=== PATIENT | female | born 1995 | race Caucasian/White ===

== ENCOUNTER 2017-08-31 20:52 | Inpatient (IN) | payer MEDICAID ==
[~2017-08-31] VITALS: Ht 152.4 cm; Wt 52.9 kg
[~2017-08-31 20:52] MED LIST: PANT40TA5 PO; PHEN30CA PO; SUCR1ORA5 PO
[2017-08-31] MEDS ORDERED: NALOXONE 0.4 MG/ML, 1ML ONE (21:00)
[2017-08-31] MEDS ORDERED: ZIPRASIDONE 20 MG INJ IM ONE ×2 (21:16→21:30)
[2017-08-31] MEDS ORDERED: NALOXONE 0.4 MG/ML, 1ML IVPush ONE (21:30)
[2017-08-31] MEDS ORDERED: SODIUM CHLORIDE 0.9% 1,000ML IVBOLUS ONE (21:30)
[2017-08-31 21:40] LABS: BASOPHILS # (AUTO) 0.04 x10^3/uL (0-0.1); BASOPHILS % (AUTO) 1 % (0-1); EOSINOPHILS # (AUTO) 0.03 x10^3/uL (0-0.4); EOSINOPHILS % (AUTO) 1 % (1-7); LYMPHOCYTES # (AUTO) 2.47 x10^3/uL (1-3.4); LYMPHOCYTES % (AUTO) 40 % (22-44); MD NO; MEAN CORPUSCULAR HEMOGLOBIN 32.8 pg (27.0-34.8); MEAN CORPUSCULAR HGB CONC 33.8 g/dL (32.4-35.8); MEAN CORPUSCULAR VOLUME 97.1 fL (80-100); MEAN PLATELET VOLUME 7.4 fL (7.4-10.4); MONOCYTES # (AUTO) 0.41 x10^3/uL (0.2-0.8); MONOCYTES % (AUTO) 7 % (2-9); NEUTROPHILS # (AUTO) 3.16 x10^3/uL (1.8-6.8); NEUTROPHILS % (AUTO) 52 % (42-75); PLATELET COUNT 391 x10^3/uL (130-400); RED BLOOD COUNT 3.99 x10^6/uL (3.82-5.3); RED CELL DISTRIBUTION WIDTH 13.4 % (9.6-15.2)
[2017-08-31] MEDS: PLEASE ENTER HEIGHT AND WEIGHT MC SCH (21:40)
[2017-08-31 21:52] LABS: ALANINE AMINOTRANSFERASE 95 U/L (12-78); ALBUMIN 3.9 g/dL (3.4-5.0); ANION GAP 10 mmol/L (5-15); CALCIUM 8.5 mg/dL (8.5-10.1); CHLORIDE 113 mmol/L (98-107); CREATININE 0.75 mg/dL (0.55-1.02)
[2017-08-31 21:54] LABS: ACETAMINOPHEN < 2 mcg/mL (10-30); SALICYLATE LEVEL < 1.7 mg/dL (2.8-20.0)
[2017-08-31 21:56] LABS: ALKALINE PHOSPHATASE 76 U/L (45-117); BILIRUBIN,TOTAL 0.2 mg/dL (0.2-1.0); TOTAL PROTEIN 8.1 g/dL (6.4-8.2)
[2017-08-31 22:02] LABS: THYROID STIMULATING HORMONE 0.679 mIU/L (0.358-3.740)
[2017-09-01] MEDS: PLEASE ENTER HEIGHT AND WEIGHT MC SCH (06:54)
[2017-09-01] MEDS ORDERED: SODIUM CHLORIDE 0.9% 1,000ML IVBOLUS ONE (09:30)
[2017-09-01] MEDS ORDERED: LORazepam 2 MG/ML, 1ML IVPush PRN (09:30)
[2017-09-01] MEDS ORDERED: SODIUM CHLORIDE FLUSH 10ML SYR IVF ONE (09:30)
[2017-09-01] MEDS ORDERED: hydrALAzine 20 MG/ML, 1ML IVPush PRN (11:30)
[2017-09-01] MEDS: DEXTROSE 5% 1,000 ML IV SCH ×2 (12:13→19:40)
[2017-09-01] MEDS: PANTOPROZOLE 40MG TABLET PO SCH ×2 (12:15→22:22)
[2017-09-01 12:26] VITALS: BP 123/83
[2017-09-01 12:43] LABS: FREE T4 (FREE THYROXINE) 0.86 ng/dL (0.76-1.46); THYROID STIMULATING HORMONE 0.859 mIU/L (0.358-3.740)
[2017-09-01 12:57] LABS: AMPHETAMINE SCREEN, URINE Negative (Negative); BARBITURATE SCREEN, URINE Negative (Negative); BENZODIAZEPINE SCREEN, URINE Negative (Negative); CANNABINOID SCREEN, URINE Negative (Negative); COCAINE SCREEN, URINE Negative (Negative); METHADONE SCREEN, URINE Negative (Negative); OPIATE SCREEN, URINE Negative (Negative)
[2017-09-01 14:46] VITALS: BP 130/88
[2017-09-01] MEDS: MAALOX/HYOSCYAMINE/LIDOCAINE 45 ML BTL PO PRN (16:06)
[2017-09-01] MEDS ORDERED: MORPHINE SULFATE 4 MG/ML, 1ML ONE (16:37)
[2017-09-01] MEDS: morphine SULFATE 10 MG/ML, 1ML IVPush PRN ×2 (16:42→22:22)
[2017-09-01] MEDS: LORazepam 2 MG/ML, 1ML IVPush PRN ×3 (17:10→23:24)
[2017-09-01 19:27] VITALS: BP 142/94
[2017-09-01] MEDS ORDERED: ONDANSETRON ODT 4 MG ONE (19:35)
[2017-09-01] MEDS: ONDANSETRON 2MG/ML, 2ML IVPush PRN (19:41)
[2017-09-01] MEDS: MAGNESIUM OXIDE 400 MG TABLET PO SCH (22:22)
[2017-09-02 00:29] VITALS: BP 139/91
[2017-09-02] MEDS ORDERED: ONDANSETRON ODT 4 MG ONE (01:09)
[2017-09-02] MEDS: ONDANSETRON 2MG/ML, 2ML IVPush PRN (01:11)
[2017-09-02] MEDS: LORazepam 2 MG/ML, 1ML IVPush PRN ×4 (01:36→20:01)
[2017-09-02] MEDS ORDERED: MORPHINE SULFATE 4 MG/ML, 1ML ONE (02:15)
[2017-09-02] MEDS: DEXTROSE 5% 1,000 ML IV SCH (02:19)
[2017-09-02] MEDS: morphine SULFATE 10 MG/ML, 1ML IVPush PRN ×5 (02:24→22:11)
[2017-09-02] MEDS: MAALOX/HYOSCYAMINE/LIDOCAINE 45 ML BTL PO PRN (05:12)
[2017-09-02 05:57] LABS: ALBUMIN 3.2 g/dL (3.4-5.0); ANION GAP 10 mmol/L (5-15); CALCIUM 8.5 mg/dL (8.5-10.1); CHLORIDE 103 mmol/L (98-107)
[2017-09-02 06:02] LABS: ALANINE AMINOTRANSFERASE 67 U/L (12-78); ALKALINE PHOSPHATASE 70 U/L (45-117); BILIRUBIN,TOTAL 0.6 mg/dL (0.2-1.0); CREATININE 0.67 mg/dL (0.55-1.02); TOTAL PROTEIN 6.7 g/dL (6.4-8.2)
[2017-09-02 06:03] LABS: BASOPHILS # (AUTO) 0.02 x10^3/uL (0-0.1); BASOPHILS % (AUTO) 0 % (0-1); EOSINOPHILS # (AUTO) 0.09 x10^3/uL (0-0.4); EOSINOPHILS % (AUTO) 2 % (1-7); LYMPHOCYTES # (AUTO) 1.87 x10^3/uL (1-3.4); LYMPHOCYTES % (AUTO) 39 % (22-44); MD NO; MEAN CORPUSCULAR HEMOGLOBIN 32.7 pg (27.0-34.8); MEAN CORPUSCULAR VOLUME 96.1 fL (80-100); MEAN PLATELET VOLUME 7.2 fL (7.4-10.4); MONOCYTES # (AUTO) 0.59 x10^3/uL (0.2-0.8); MONOCYTES % (AUTO) 12 % (2-9); NEUTROPHILS # (AUTO) 2.28 x10^3/uL (1.8-6.8); NEUTROPHILS % (AUTO) 47 % (42-75); PLATELET COUNT 285 x10^3/uL (130-400); RED BLOOD COUNT 3.39 x10^6/uL (3.82-5.3); RED CELL DISTRIBUTION WIDTH 13.2 % (9.6-15.2)
[2017-09-02 08:18] VITALS: BP 119/84
[2017-09-02] MEDS: D5%-0.45% NACL 1,000 ML IV SCH ×3 (08:30→21:25)
[2017-09-02] MEDS ORDERED: MAGNESIUM SULFATE PMX 2GM/50ML 50 ML IV ONE (08:30)
[2017-09-02] MEDS ORDERED: POTASSIUM PHOSPHATE 22 MEQ in SODIUM CHLORIDE 0.9% 500 ML IV ONE (08:30)
[2017-09-02] MEDS: POTASSIUM CHLORIDE 20 MEQ TAB.ER.PRT PO SCH ×2 (09:47→10:56)
[2017-09-02] MEDS: MAGNESIUM OXIDE 400 MG TABLET PO SCH ×2 (09:48→21:23)
[2017-09-02] MEDS: PANTOPROZOLE 40MG TABLET PO SCH ×2 (09:52→21:23)
[2017-09-02] MEDS: CHLORDIAZEPOXIDE 25 MG CAPSULE PO SCH ×3 (10:56→21:23)
[2017-09-02 15:56] VITALS: BP 137/96
[2017-09-02 19:12] VITALS: BP_SYST 150; BP_SYST 155; BP_DIAS 117; BP_DIAS 120
[2017-09-02 19:59] VITALS: BP 113/72
[2017-09-02 20:03] VITALS: BP 162/122
[2017-09-02] MEDS ORDERED: METOPROLOL 1 MG/ML, 5ML ONE (20:17)
[2017-09-02] MEDS ORDERED: METOPROLOL 1 MG/ML, 5ML IVPush ONE (20:30)
[2017-09-02] MEDS ORDERED: LORazepam 2 MG/ML, 1ML IVPush ONE (20:30)
[2017-09-02] MEDS ORDERED: LORazepam 2 MG/ML, 1ML IV PRN ×3 (21:00)
[2017-09-02] MEDS ORDERED: LORazepam 0.5MG TABLET PO PRN (21:00)
[2017-09-02] MEDS ORDERED: LORazepam 1MG TABLET PO PRN ×3 (21:00)
[2017-09-02 21:01] LABS: ANION GAP 8 mmol/L (5-15); CALCIUM 9.2 mg/dL (8.5-10.1); CHLORIDE 106 mmol/L (98-107); CREATININE 0.67 mg/dL (0.55-1.02)
[2017-09-02] MEDS: LORazepam 2 MG/ML, 1ML IV PRN (23:15)
[2017-09-03] MEDS: LORazepam 2 MG/ML, 1ML IV PRN ×3 (00:45→06:42)
[2017-09-03] MEDS: morphine SULFATE 10 MG/ML, 1ML IVPush PRN ×4 (04:26→21:08)
[2017-09-03] MEDS: D5%-0.45% NACL 1,000 ML IV SCH (04:30)
[2017-09-03 04:55] LABS: BASOPHILS # (AUTO) 0.02 x10^3/uL (0-0.1); BASOPHILS % (AUTO) 0 % (0-1); EOSINOPHILS # (AUTO) 0.29 x10^3/uL (0-0.4); EOSINOPHILS % (AUTO) 4 % (1-7); LYMPHOCYTES # (AUTO) 2.44 x10^3/uL (1-3.4); LYMPHOCYTES % (AUTO) 36 % (22-44); MD NO; MEAN CORPUSCULAR HEMOGLOBIN 32.8 pg (27.0-34.8); MEAN CORPUSCULAR HGB CONC 33.8 g/dL (32.4-35.8); MEAN CORPUSCULAR VOLUME 96.9 fL (80-100); MEAN PLATELET VOLUME 7.4 fL (7.4-10.4); MONOCYTES # (AUTO) 0.44 x10^3/uL (0.2-0.8); MONOCYTES % (AUTO) 7 % (2-9); NEUTROPHILS % (AUTO) 53 % (42-75); PLATELET COUNT 304 x10^3/uL (130-400); RED BLOOD COUNT 3.67 x10^6/uL (3.82-5.3)
[2017-09-03 05:06] LABS: ALBUMIN 3.3 g/dL (3.4-5.0); CHLORIDE 107 mmol/L (98-107)
[2017-09-03 05:14] LABS: ALANINE AMINOTRANSFERASE 101 U/L (12-78); ALKALINE PHOSPHATASE 76 U/L (45-117); ANION GAP 7 mmol/L (5-15); BILIRUBIN,TOTAL 0.3 mg/dL (0.2-1.0); CALCIUM 8.2 mg/dL (8.5-10.1); CREATININE 0.64 mg/dL (0.55-1.02); TOTAL PROTEIN 7.2 g/dL (6.4-8.2)
[2017-09-03] MEDS: CHLORDIAZEPOXIDE 25 MG CAPSULE PO SCH (06:06)
[2017-09-03] MEDS: LORazepam 1MG TABLET PO PRN ×2 (08:18→09:24)
[2017-09-03] MEDS: PANTOPROZOLE 40MG TABLET PO SCH ×2 (09:24→19:47)
[2017-09-03] MEDS: MAGNESIUM OXIDE 400 MG TABLET PO SCH ×2 (09:24→19:47)
[2017-09-03] MEDS ORDERED: LORazepam 1MG TABLET PO PRN ×2 (11:30)
[2017-09-03] MEDS: ENOXAPARIN 40 MG/0.4 ML SQ SCH (12:28)
[2017-09-03] MEDS: GABAPENTIN 300 MG CAPSULE PO SCH (12:28)
[2017-09-03] MEDS: THIAMINE 100MG TABLET PO SCH (12:28)
[2017-09-03] MEDS: FOLIC ACID 1 MG TABLET PO SCH (12:28)
[2017-09-03] MEDS: MULTIVITAMINS/MINERALS TABLET PO SCH (12:28)
[2017-09-03] MEDS ORDERED: PHENOBARBITAL SODIUM 500 MG in SODIUM CHLORIDE 0.9% 50 ML IV ONE (12:30)
[2017-09-03] MEDS: NICOTINE 14MG/24 HR PATCH.TD24 TD SCH (16:25)
[2017-09-03] MEDS ORDERED: PHENOBARBITAL SODIUM 130 MG/ML, 1ML IM SCH ×3 (19:00→20:00)
[2017-09-03] MEDS ORDERED: DEXMEDETOMIDINE 200 MCG in SODIUM CHLORIDE 0.9% 48 ML IV PRN (19:00)
[2017-09-03] MEDS ORDERED: PHENOBARBITAL SODIUM 65 MG/ML, 1ML ONE (19:43)
[2017-09-03] MEDS: PHENOBARBITAL SODIUM 65 MG/ML, 1ML IM SCH (19:57)
[2017-09-04] MEDS: morphine SULFATE 10 MG/ML, 1ML IVPush PRN ×5 (03:33→20:22)
[2017-09-04 04:14] VITALS: BP 145/110
[2017-09-04 04:42] LABS: BASOPHILS # (AUTO) 0.03 x10^3/uL (0-0.1); BASOPHILS % (AUTO) 1 % (0-1); EOSINOPHILS # (AUTO) 0.33 x10^3/uL (0-0.4); EOSINOPHILS % (AUTO) 6 % (1-7); LYMPHOCYTES # (AUTO) 2.43 x10^3/uL (1-3.4); LYMPHOCYTES % (AUTO) 43 % (22-44); MD NO; MEAN CORPUSCULAR HEMOGLOBIN 32.6 pg (27.0-34.8); MEAN CORPUSCULAR HGB CONC 33.6 g/dL (32.4-35.8); MEAN CORPUSCULAR VOLUME 97.1 fL (80-100); MEAN PLATELET VOLUME 7.4 fL (7.4-10.4); MONOCYTES # (AUTO) 0.41 x10^3/uL (0.2-0.8); MONOCYTES % (AUTO) 7 % (2-9); NEUTROPHILS # (AUTO) 2.43 x10^3/uL (1.8-6.8); NEUTROPHILS % (AUTO) 43 % (42-75); PLATELET COUNT 333 x10^3/uL (130-400); RED BLOOD COUNT 3.75 x10^6/uL (3.82-5.3); RED CELL DISTRIBUTION WIDTH 13.1 % (9.6-15.2)
[2017-09-04 04:44] LABS: INTERNATIONAL NORMALIZED RATIO 0.95 (0.93-1.1); PROTHROMBIN TIME 9.9 Seconds (9.6-11.5)
[2017-09-04 04:50] LABS: ALANINE AMINOTRANSFERASE 123 U/L (12-78); ALBUMIN 3.4 g/dL (3.4-5.0); ANION GAP 6 mmol/L (5-15); CALCIUM 8.9 mg/dL (8.5-10.1); CHLORIDE 101 mmol/L (98-107); CREATININE 0.74 mg/dL (0.55-1.02)
[2017-09-04 04:52] LABS: ALKALINE PHOSPHATASE 72 U/L (45-117); BILIRUBIN,TOTAL 0.5 mg/dL (0.2-1.0); TOTAL PROTEIN 7.3 g/dL (6.4-8.2)
[2017-09-04] MEDS: PANTOPROZOLE 40MG TABLET PO SCH ×2 (07:28→20:22)
[2017-09-04] MEDS: THIAMINE 100MG TABLET PO SCH (07:28)
[2017-09-04] MEDS: FOLIC ACID 1 MG TABLET PO SCH (07:28)
[2017-09-04] MEDS: MAGNESIUM OXIDE 400 MG TABLET PO SCH ×2 (07:28→20:22)
[2017-09-04] MEDS: MULTIVITAMINS/MINERALS TABLET PO SCH (07:28)
[2017-09-04] MEDS: GABAPENTIN 300 MG CAPSULE PO SCH (07:28)
[2017-09-04] MEDS: PHENOBARBITAL SODIUM 65 MG/ML, 1ML IM SCH ×2 (07:29→22:15)
[2017-09-04] MEDS ORDERED: MAGNESIUM SULFATE PMX 2GM/50ML 50 ML IV ONE (08:00)
[2017-09-04] MEDS ORDERED: D5%-0.45% NACL 1,000 ML IV SCH (08:30)
[2017-09-04] MEDS: KETOROLAC 30 MG/1 ML IVPush PRN ×2 (09:31→16:21)
[2017-09-04] MEDS: ENOXAPARIN 40 MG/0.4 ML SQ SCH (12:22)
[2017-09-04] MEDS: NICOTINE 14MG/24 HR PATCH.TD24 TD SCH (16:21)
[2017-09-04 18:38] VITALS: BP 140/85
[2017-09-04 19:46] VITALS: BP 119/83
[2017-09-04] MEDS: MAALOX/HYOSCYAMINE/LIDOCAINE 45 ML BTL PO PRN (20:23)
[2017-09-04] MEDS ORDERED: ONDANSETRON ODT 4 MG PO PRN (23:30)
[2017-09-05 00:37] VITALS: BP 123/87
[2017-09-05] MEDS: morphine SULFATE 10 MG/ML, 1ML IVPush PRN ×2 (01:13→05:49)
[2017-09-05 05:26] LABS: BASOPHILS # (AUTO) 0.02 x10^3/uL (0-0.1); BASOPHILS % (AUTO) 0 % (0-1); EOSINOPHILS # (AUTO) 0.21 x10^3/uL (0-0.4); EOSINOPHILS % (AUTO) 4 % (1-7); LYMPHOCYTES % (AUTO) 27 % (22-44); MD NO; MEAN CORPUSCULAR HEMOGLOBIN 33.3 pg (27.0-34.8); MEAN CORPUSCULAR HGB CONC 34.5 g/dL (32.4-35.8); MEAN CORPUSCULAR VOLUME 96.5 fL (80-100); MEAN PLATELET VOLUME 7.6 fL (7.4-10.4); MONOCYTES # (AUTO) 0.29 x10^3/uL (0.2-0.8); MONOCYTES % (AUTO) 6 % (2-9); NEUTROPHILS % (AUTO) 63 % (42-75); PLATELET COUNT 276 x10^3/uL (130-400); RED BLOOD COUNT 3.42 x10^6/uL (3.82-5.3); RED CELL DISTRIBUTION WIDTH 12.9 % (9.6-15.2)
[2017-09-05 05:38] LABS: CHLORIDE 102 mmol/L (98-107)
[2017-09-05 05:45] LABS: ALANINE AMINOTRANSFERASE 92 U/L (12-78); ALBUMIN 2.9 g/dL (3.4-5.0); ALKALINE PHOSPHATASE 80 U/L (45-117); ANION GAP 5 mmol/L (5-15); BILIRUBIN,TOTAL 0.3 mg/dL (0.2-1.0); CALCIUM 8.4 mg/dL (8.5-10.1); CREATININE 0.69 mg/dL (0.55-1.02); TOTAL PROTEIN 6.2 g/dL (6.4-8.2)
[2017-09-05 08:57] VITALS: BP 108/73
[2017-09-05] MEDS: MULTIVITAMINS/MINERALS TABLET PO SCH (11:09)
[2017-09-05] MEDS: KETOROLAC 30 MG/1 ML IVPush PRN ×2 (11:09→18:16)
[2017-09-05] MEDS: THIAMINE 100MG TABLET PO SCH (11:13)
[2017-09-05] MEDS: GABAPENTIN 300 MG CAPSULE PO SCH (11:14)
[2017-09-05] MEDS: MAGNESIUM OXIDE 400 MG TABLET PO SCH ×2 (11:14→20:34)
[2017-09-05] MEDS: FOLIC ACID 1 MG TABLET PO SCH (11:14)
[2017-09-05] MEDS: PHENOBARBITAL SODIUM 65 MG/ML, 1ML IM SCH (12:32)
[2017-09-05] MEDS: ENOXAPARIN 40 MG/0.4 ML SQ SCH (12:36)
[2017-09-05 13:04] VITALS: BP 119/81
[2017-09-05] MEDS: NICOTINE 14MG/24 HR PATCH.TD24 TD SCH (16:24)
[2017-09-05 19:41] VITALS: BP 123/87
[2017-09-05] MEDS ORDERED: PHENOBARBITAL 30 MG TABLET ONE (20:32)
[2017-09-05] MEDS: PHENOBARBITAL 20 MG/5 ML ORAL SOL PO SCH (20:35)
[2017-09-06] MEDS: KETOROLAC 30 MG/1 ML IVPush PRN ×4 (00:30→18:28)
[2017-09-06 02:31] VITALS: BP 125/85
[2017-09-06 07:37] VITALS: BP 102/57
[2017-09-06] MEDS: MULTIVITAMINS/MINERALS TABLET PO SCH (09:23)
[2017-09-06] MEDS: PHENOBARBITAL 20 MG/5 ML ORAL SOL PO SCH ×2 (09:23→20:00)
[2017-09-06] MEDS: GABAPENTIN 300 MG CAPSULE PO SCH (09:23)
[2017-09-06] MEDS: MAGNESIUM OXIDE 400 MG TABLET PO SCH ×2 (09:24→20:00)
[2017-09-06] MEDS: FOLIC ACID 1 MG TABLET PO SCH (09:24)
[2017-09-06] MEDS: THIAMINE 100MG TABLET PO SCH (09:24)
[2017-09-06] MEDS: ENOXAPARIN 40 MG/0.4 ML SQ SCH (12:21)
[2017-09-06 12:24] VITALS: BP 127/93
[2017-09-06] MEDS: NICOTINE 14MG/24 HR PATCH.TD24 TD SCH (16:00)
[2017-09-06 20:00] VITALS: BP 115/78
[2017-09-07 02:00] VITALS: BP 137/95
[2017-09-07 07:29] VITALS: BP 133/88
[2017-09-07] MEDS: THIAMINE 100MG TABLET PO SCH (09:23)
[2017-09-07] MEDS: GABAPENTIN 300 MG CAPSULE PO SCH (09:23)
[2017-09-07] MEDS: FOLIC ACID 1 MG TABLET PO SCH (09:23)
[2017-09-07] MEDS: PHENOBARBITAL 20 MG/5 ML ORAL SOL PO SCH (09:23)
[2017-09-07] MEDS: MULTIVITAMINS/MINERALS TABLET PO SCH (09:23)
[2017-09-07] MEDS: MAGNESIUM OXIDE 400 MG TABLET PO SCH (09:23)
[2017-09-07] MEDS: ENOXAPARIN 40 MG/0.4 ML SQ SCH (13:06)
[2017-09-07] MEDS ORDERED: THIA100T6 PO (13:12)
[2017-09-07 13:16] VITALS: BP 115/80
[2017-09-07] MEDS: NICOTINE 14MG/24 HR PATCH.TD24 TD SCH (16:00)
[2017-09-07] MEDS ORDERED: PHENOBARBITAL 20 MG/5 ML ORAL SOL PO SCH (20:00)
[2017-09-08] MEDS ORDERED: PHENOBARBITAL 20 MG/5 ML ORAL SOL PO SCH (20:00)
== END 2017-09-07 16:56 | disposition home or self-care (01) | DRG 56 ==
LOC: ED 21:52 → EDIP 09-01 10:53 → 4EST 09-01 11:47 → CCU 09-02 20:26 → 4WST 09-04 16:22 → DCLOUNGE 09-07 16:50
PROVIDERS: ADMIT Internal Medicine; ATTEND Internal Medicine
DX: G31.2 Degeneration of nervous system due to alcohol (principal); G92 Toxic encephalopathy; F10.221 Alcohol dependence with intoxication delirium; F10.231 Alcohol dependence with withdrawal delirium; E87.0 Hyperosmolality and hypernatremia; E87.1 Hypo-osmolality and hyponatremia; F17.203 Nicotine dependence unspecified, with withdrawal; F19.20 Other psychoactive substance dependence, uncomplicated; E83.39 Other disorders of phosphorus metabolism; E86.0 Dehydration; E83.42 Hypomagnesemia; E87.6 Hypokalemia; K70.10 Alcoholic hepatitis without ascites; T50.905A Adverse effect of unspecified drugs, medicaments and biological substances, initial encounter; Z88.5 Allergy status to narcotic agent; Z88.8 Allergy status to other drugs, medicaments and biological substances
CPT/HCPCS: 36415; 80048; 80053; 80307; 80329; 82962; 83735; 84100; 84439; 84443; 84703; 85025; 85610; 86704; 86706; 86708; 86803; 87081; 87340; 93005; 96361; 96372; 96374; 96375; J1650; J1885; J2310; J2405; J2560; J3486; J7070; Q0162; G0480; J2060; J2270; J3475; J7030; J7040

== ENCOUNTER 2017-11-16 03:51 | Inpatient (IN) | payer OTHER, MEDICAID ==
[~2017-11-16] VITALS: Ht 152.4 cm; Wt 64.0 kg
[~2017-11-16 03:51] MED LIST changes: +THIA100T67 PO
[2017-11-16] MEDS ORDERED: SODIUM CHLORIDE FLUSH 10ML SYR IVF ONE (04:00)
[2017-11-16] MEDS ORDERED: SODIUM CHLORIDE 0.9% 1,000ML IVBOLUS ONE ×2 (04:00→06:30)
[2017-11-16] MEDS ORDERED: ONDANSETRON 2MG/ML, 2ML IVPush ONE (04:00)
[2017-11-16] MEDS ORDERED: LORazepam 2 MG/ML, 1ML ONE ×2 (04:24→06:11)
[2017-11-16] MEDS ORDERED: LORazepam 2 MG/ML, 1ML IVPush ONE ×2 (04:30→06:30)
[2017-11-16] MEDS ORDERED: ONDANSETRON 2MG/ML, 2ML ONE (05:07)
[2017-11-16 05:14] LABS: BASOPHILS # (AUTO) 0.03 x10^3/uL (0-0.1); BASOPHILS % (AUTO) 1 % (0-1); EOSINOPHILS # (AUTO) 0.07 x10^3/uL (0-0.4); EOSINOPHILS % (AUTO) 1 % (1-7); LYMPHOCYTES # (AUTO) 2.57 x10^3/uL (1-3.4); LYMPHOCYTES % (AUTO) 42 % (22-44); MD NO; MEAN CORPUSCULAR HEMOGLOBIN 32.7 pg (27.0-34.8); MEAN CORPUSCULAR HGB CONC 34.4 g/dL (32.4-35.8); MEAN CORPUSCULAR VOLUME 95.1 fL (80-100); MEAN PLATELET VOLUME 7.6 fL (7.4-10.4); MONOCYTES # (AUTO) 0.43 x10^3/uL (0.2-0.8); MONOCYTES % (AUTO) 7 % (2-9); NEUTROPHILS # (AUTO) 3.07 x10^3/uL (1.8-6.8); NEUTROPHILS % (AUTO) 50 % (42-75); PLATELET COUNT 249 x10^3/uL (130-400); RED CELL DISTRIBUTION WIDTH 15.5 % (9.6-15.2)
[2017-11-16 05:23] LABS: ALBUMIN 4.2 g/dL (3.4-5.0); ANION GAP 13 mmol/L (5-15); CHLORIDE 105 mmol/L (98-107)
[2017-11-16 05:30] LABS: ALANINE AMINOTRANSFERASE 145 U/L (12-78); ALKALINE PHOSPHATASE 118 U/L (45-117); BILIRUBIN,TOTAL 0.3 mg/dL (0.2-1.0); CALCIUM 8.8 mg/dL (8.5-10.1); CREATININE 0.84 mg/dL (0.55-1.02); TOTAL PROTEIN 8.8 g/dL (6.4-8.2)
[2017-11-16 05:40] LABS: AMPHETAMINE SCREEN, URINE Negative (Negative); BARBITURATE SCREEN, URINE Negative (Negative); BENZODIAZEPINE SCREEN, URINE Negative (Negative); CANNABINOID SCREEN, URINE Positive (Negative); COCAINE SCREEN, URINE Negative (Negative); METHADONE SCREEN, URINE Negative (Negative); OPIATE SCREEN, URINE Negative (Negative)
[2017-11-16] MEDS ORDERED: SODIUM CHLORIDE 0.9% 1,000 ML IV ONE (06:28)
[2017-11-16] MEDS ORDERED: ONDANSETRON 2MG/ML, 2ML IVPush PRN ×2 (06:30→09:00)
[2017-11-16 07:30] VITALS: BP 105/62
[2017-11-16] MEDS ORDERED: LORazepam 1MG TABLET PO PRN (09:00)
[2017-11-16] MEDS ORDERED: LORazepam 2 MG/ML, 1ML IV PRN ×4 (09:00)
[2017-11-16] MEDS ORDERED: morphine SULFATE 10 MG/ML, 1ML IVPush PRN (09:00)
[2017-11-16] MEDS: SODIUM CHLORIDE 0.9% 1,000 ML IV SCH ×2 (09:00→17:34)
[2017-11-16 09:45] LABS: BASOPHILS # (AUTO) 0.03 x10^3/uL (0-0.1); BASOPHILS % (AUTO) 1 % (0-1); EOSINOPHILS # (AUTO) 0.13 x10^3/uL (0-0.4); EOSINOPHILS % (AUTO) 2 % (1-7); LYMPHOCYTES # (AUTO) 2.29 x10^3/uL (1-3.4); LYMPHOCYTES % (AUTO) 40 % (22-44); MD NO; MEAN CORPUSCULAR HEMOGLOBIN 32.3 pg (27.0-34.8); MEAN CORPUSCULAR HGB CONC 33.7 g/dL (32.4-35.8); MEAN CORPUSCULAR VOLUME 95.9 fL (80-100); MEAN PLATELET VOLUME 7.7 fL (7.4-10.4); MONOCYTES # (AUTO) 0.46 x10^3/uL (0.2-0.8); MONOCYTES % (AUTO) 8 % (2-9); NEUTROPHILS # (AUTO) 2.76 x10^3/uL (1.8-6.8); NEUTROPHILS % (AUTO) 49 % (42-75); PLATELET COUNT 189 x10^3/uL (130-400); RED BLOOD COUNT 3.56 x10^6/uL (3.82-5.3); RED CELL DISTRIBUTION WIDTH 15.4 % (9.6-15.2)
[2017-11-16 09:56] LABS: ALANINE AMINOTRANSFERASE 113 U/L (12-78); ALBUMIN 3.2 g/dL (3.4-5.0); ANION GAP 9 mmol/L (5-15); CALCIUM 7.5 mg/dL (8.5-10.1); CHLORIDE 112 mmol/L (98-107); CREATININE 0.62 mg/dL (0.55-1.02)
[2017-11-16 09:58] LABS: ALKALINE PHOSPHATASE 98 U/L (45-117); BILIRUBIN,TOTAL 0.2 mg/dL (0.2-1.0); TOTAL PROTEIN 6.8 g/dL (6.4-8.2)
[2017-11-16] MEDS: MORPHINE SULFATE 4 MG/ML, 1ML IVPush PRN ×4 (10:20→20:48)
[2017-11-16] MEDS: FAMOTIDINE 20 MG TABLET PO SCH ×2 (10:20→20:47)
[2017-11-16] MEDS: POTASSIUM CHLORIDE 20 MEQ, MAGNESIUM SULFATE 1 GM, FOLIC ACID 1 MG, THIAMINE 200 MG, MV... IV SCH (10:20)
[2017-11-16] MEDS: CHLORDIAZEPOXIDE 10 MG CAPSULE PO SCH ×3 (10:26→20:47)
[2017-11-16 10:43] VITALS: BP 105/62
[2017-11-16] MEDS ORDERED: SODIUM CHLORIDE 0.9%, 500ML IVBOLUS ONE (11:30)
[2017-11-16 12:37] VITALS: BP 118/83
[2017-11-16 18:43] VITALS: BP 140/93
[2017-11-16] MEDS ORDERED: MAGNESIUM SULFATE 4 GM in SODIUM CHLORIDE 0.9% 100 ML IV ONE (22:00)
[2017-11-17 00:28] VITALS: BP 137/104
[2017-11-17] MEDS: MORPHINE SULFATE 4 MG/ML, 1ML IVPush PRN ×2 (00:30→08:05)
[2017-11-17 02:51] VITALS: BP 117/83
[2017-11-17] MEDS: CHLORDIAZEPOXIDE 10 MG CAPSULE PO SCH (05:04)
[2017-11-17] MEDS: SODIUM CHLORIDE 0.9% 1,000 ML IV SCH (05:05)
[2017-11-17 06:03] LABS: BASOPHILS # (AUTO) 0.03 x10^3/uL (0-0.1); BASOPHILS % (AUTO) 1 % (0-1); EOSINOPHILS # (AUTO) 0.24 x10^3/uL (0-0.4); EOSINOPHILS % (AUTO) 4 % (1-7); LYMPHOCYTES % (AUTO) 45 % (22-44); MD NO; MEAN CORPUSCULAR HEMOGLOBIN 32.5 pg (27.0-34.8); MEAN CORPUSCULAR HGB CONC 33.7 g/dL (32.4-35.8); MEAN CORPUSCULAR VOLUME 96.4 fL (80-100); MEAN PLATELET VOLUME 7.8 fL (7.4-10.4); MONOCYTES # (AUTO) 0.42 x10^3/uL (0.2-0.8); MONOCYTES % (AUTO) 8 % (2-9); NEUTROPHILS # (AUTO) 2.38 x10^3/uL (1.8-6.8); NEUTROPHILS % (AUTO) 43 % (42-75); PLATELET COUNT 168 x10^3/uL (130-400); RED BLOOD COUNT 3.67 x10^6/uL (3.82-5.3); RED CELL DISTRIBUTION WIDTH 15.6 % (9.6-15.2)
[2017-11-17 06:16] LABS: CHLORIDE 110 mmol/L (98-107)
[2017-11-17 06:23] LABS: ALANINE AMINOTRANSFERASE 90 U/L (12-78); ALKALINE PHOSPHATASE 92 U/L (45-117); ANION GAP 8 mmol/L (5-15); BILIRUBIN,TOTAL 0.6 mg/dL (0.2-1.0); CREATININE 0.53 mg/dL (0.55-1.02); TOTAL PROTEIN 6.1 g/dL (6.4-8.2)
[2017-11-17 06:56] VITALS: BP 116/81
[2017-11-17] MEDS: FAMOTIDINE 20 MG TABLET PO SCH ×2 (08:05→19:52)
[2017-11-17] MEDS: POTASSIUM CHLORIDE 20 MEQ, MAGNESIUM SULFATE 1 GM, FOLIC ACID 1 MG, THIAMINE 200 MG, MV... IV SCH (11:57)
[2017-11-17] MEDS: IBUPROFEN 200 MG TABLET PO PRN ×2 (12:15→18:25)
[2017-11-17 12:48] VITALS: BP 127/88
[2017-11-17] MEDS: ONDANSETRON ODT 4 MG PO PRN (15:28)
[2017-11-17] MEDS: LORazepam 0.5MG TABLET PO PRN (15:29)
[2017-11-17] MEDS: LORazepam 1MG TABLET PO PRN (19:53)
[2017-11-17 20:58] VITALS: BP 160/112
[2017-11-17 22:15] VITALS: BP 131/100
[2017-11-18] MEDS: LORazepam 0.5MG TABLET PO PRN ×3 (00:07→23:57)
[2017-11-18 02:55] VITALS: BP 138/102
[2017-11-18 05:00] VITALS: BP 130/95
[2017-11-18] MEDS: IBUPROFEN 200 MG TABLET PO PRN ×2 (06:33→20:20)
[2017-11-18 06:48] VITALS: BP 134/92
[2017-11-18] MEDS: FAMOTIDINE 20 MG TABLET PO SCH ×2 (09:18→20:20)
[2017-11-18] MEDS: MULTIVITAMIN 1 TABLET PO SCH (09:18)
[2017-11-18] MEDS: FOLIC ACID 1 MG TABLET PO SCH (09:18)
[2017-11-18] MEDS: CYANOCOBALAMIN 1,000 MCG TABLET PO SCH (09:19)
[2017-11-18] MEDS: LORazepam 1MG TABLET PO PRN ×5 (09:20→20:20)
[2017-11-18] MEDS: MORPHINE SULFATE 4 MG/ML, 1ML IVPush PRN ×2 (09:29→13:20)
[2017-11-18 12:49] VITALS: BP 137/99
[2017-11-18] MEDS: HYDROcodone/APAP 5/325 TABLET PO PRN (18:20)
[2017-11-18 21:56] VITALS: BP 137/99
[2017-11-19] MEDS: HYDROcodone/APAP 5/325 TABLET PO PRN (00:36)
[2017-11-19] MEDS: LORazepam 0.5MG TABLET PO PRN ×2 (02:57→09:41)
[2017-11-19 03:45] VITALS: BP 140/84
[2017-11-19 05:44] LABS: CHLORIDE 105 mmol/L (98-107)
[2017-11-19 05:49] LABS: ALANINE AMINOTRANSFERASE 91 U/L (12-78); ALBUMIN 3.1 g/dL (3.4-5.0); ALKALINE PHOSPHATASE 87 U/L (45-117); ANION GAP 6 mmol/L (5-15); BILIRUBIN,TOTAL 0.5 mg/dL (0.2-1.0); CALCIUM 8.7 mg/dL (8.5-10.1); CREATININE 0.64 mg/dL (0.55-1.02); TOTAL PROTEIN 6.7 g/dL (6.4-8.2)
[2017-11-19 07:50] VITALS: BP 119/84
[2017-11-19] MEDS ORDERED: POLYETHYLENE GLYCOL 17 GM PACKET NG PRN (08:30)
[2017-11-19] MEDS: MAGNESIUM OXIDE 400 MG TABLET PO SCH (09:40)
[2017-11-19] MEDS: FAMOTIDINE 20 MG TABLET PO SCH ×2 (09:40→20:14)
[2017-11-19] MEDS: MULTIVITAMIN 1 TABLET PO SCH (09:41)
[2017-11-19] MEDS: FOLIC ACID 1 MG TABLET PO SCH (09:41)
[2017-11-19] MEDS: CYANOCOBALAMIN 1,000 MCG TABLET PO SCH (09:41)
[2017-11-19] MEDS: DOCUSATE 100 MG CAPSULE PO SCH ×2 (09:41→20:14)
[2017-11-19] MEDS: POTASSIUM CHLORIDE 20 MEQ PACKET PO SCH (09:46)
[2017-11-19] MEDS: ONDANSETRON ODT 4 MG PO PRN (11:55)
[2017-11-19 12:00] VITALS: BP 136/94
[2017-11-19] MEDS: IBUPROFEN 200 MG TABLET PO PRN ×2 (12:29→20:14)
[2017-11-19 12:49] VITALS: BP 128/90
[2017-11-19 21:30] VITALS: BP 139/89
[2017-11-20 01:41] VITALS: BP 118/79
[2017-11-20] MEDS: IBUPROFEN 200 MG TABLET PO PRN (02:41)
[2017-11-20] MEDS: POTASSIUM CHLORIDE 20 MEQ PACKET PO SCH (08:40)
[2017-11-20] MEDS: FOLIC ACID 1 MG TABLET PO SCH (08:40)
[2017-11-20] MEDS: CYANOCOBALAMIN 1,000 MCG TABLET PO SCH (08:41)
[2017-11-20] MEDS: MAGNESIUM OXIDE 400 MG TABLET PO SCH (08:41)
[2017-11-20] MEDS: DOCUSATE 100 MG CAPSULE PO SCH (08:41)
[2017-11-20] MEDS: FAMOTIDINE 20 MG TABLET PO SCH (08:41)
[2017-11-20] MEDS: MULTIVITAMIN 1 TABLET PO SCH (08:41)
== END 2017-11-20 12:11 | disposition home or self-care (01) | DRG 101 ==
LOC: ED 04:00 → EDIP 06:28 → 4EST 07:19
PROVIDERS: ADMIT Internal Medicine; ATTEND Internal Medicine
DX: G40.89 Other seizures (principal); S06.0X9A Concussion with loss of consciousness of unspecified duration, initial encounter; K59.00 Constipation, unspecified; R00.0 Tachycardia, unspecified; F19.10 Other psychoactive substance abuse, uncomplicated; Y90.0 Blood alcohol level of less than 20 mg/100 ml; F10.120 Alcohol abuse with intoxication, uncomplicated; G43.909 Migraine, unspecified, not intractable, without status migrainosus; S16.1XXA Strain of muscle, fascia and tendon at neck level, initial encounter; W18.39XA Other fall on same level, initial encounter; Y93.89 Activity, other specified; Y92.143 Cell of prison as the place of occurrence of the external cause; Z87.891 Personal history of nicotine dependence; Y99.8 Other external cause status; Z71.41 Alcohol abuse counseling and surveillance of alcoholic
CPT/HCPCS: 36415; 74018; 99291; J7042; 70450; 70553; 72125; 80053; 80307; 83735; 84100; 84703; 85025; 93005; 96374; 96375; 96376; J2405; J3411; J3475; J3480; Q0162; J2060; J7030; J7040

== ENCOUNTER 2020-07-27 22:37 | Observation (INO) | payer MEDICAID ==
[~2020-07-27] VITALS: Ht 162.6 cm; Wt 50.0 kg
[~2020-07-27 22:37] MED LIST changes: -PANT40TA5 PO; +PANT40TA6 PO
[2020-07-27] MEDS ORDERED: SODIUM CHLORIDE 0.9% 1,000ML IVBOLUS ONE (23:00)
[2020-07-27] MEDS ORDERED: LORazepam 2 MG/ML, 1ML IVPush ONE (23:00)
[2020-07-27] MEDS ORDERED: ZIPRASIDONE 20 MG INJ IM ONE (23:00)
--- NOTE | 2020-07-27 23:05 | NUR ---
pt bib remsa. pt took acid earlier today. Per pts boyfriend it usually wears off by now. pt is altered and has visual and auditory hallucinations. Pt is hypertensive and tachy. pt screaming and standing on bed upon arrival. pt unacle to be redirected. pt placed in retraints and medicated with geodon. pt still yelling. lights lowered. will attempt to place line when pt appears calmer.
[2020-07-27] MEDS ORDERED: LORazepam 2 MG/ML, 1ML ONE (23:31)
--- NOTE | 2020-07-27 23:44 | NUR ---
PIV PLACED. LABS DRAWN AND SENT TO LAB. PT MEDICATED AND FLUIDS RUNNING. PT APPEARS CALMER AND IS FOLLOWING DIRECTIONS. RIGHT WRIST AND LEFT LEG RESTRAINTS REMOVED. WILL CONTINUE TO ASSESS NEED FOR RESTAINTS.
[2020-07-27 23:45] LABS: BASOPHILS % (AUTO) 1 % (0-1); EOSINOPHILS % (AUTO) 1 % (1-7); LYMPHOCYTES % (AUTO) 19 % (22-44); MEAN CORPUSCULAR HEMOGLOBIN 32.7 pg (27.0-34.8); MEAN CORPUSCULAR HGB CONC 34.2 g/dL (32.4-35.8); MEAN PLATELET VOLUME 8.1 fL (7.4-10.4); MONOCYTES % (AUTO) 9 % (2-9); NEUTROPHILS % (AUTO) 70 % (42-75); PLATELET COUNT 236 x10^3/uL (130-400); RED BLOOD COUNT 3.96 x10^6/uL (3.82-5.3); RED CELL DISTRIBUTION WIDTH 13.8 % (9.6-15.2)
[2020-07-27 23:46] LABS: MD NO
--- NOTE | 2020-07-27 23:57 | NUR ---
PT IS CALMER AND IS FOLLOWING COMMANDS. RESTRAINTS REMOVED. WILL CONTINUE TO MONITOR
[2020-07-28 00:02] LABS: ALANINE AMINOTRANSFERASE 45 U/L (12-78); ALBUMIN 3.8 g/dL (3.4-5.0); ANION GAP 12 mmol/L (5-15); CALCIUM 8.8 mg/dL (8.5-10.1); CHLORIDE 110 mmol/L (98-107)
[2020-07-28 00:03] LABS: SALICYLATE LEVEL < 1.7 mg/dL (2.8-20.0)
[2020-07-28 00:13] LABS: ALKALINE PHOSPHATASE 47 U/L (45-117); BILIRUBIN,TOTAL 0.3 mg/dL (0.2-1.0); CREATININE 0.81 mg/dL (0.55-1.02); TOTAL PROTEIN 7.4 g/dL (6.4-8.2)
[2020-07-28 00:56] LABS: FREE T4 (FREE THYROXINE) 1.03 ng/dL (0.76-1.46)
--- NOTE | 2020-07-28 01:06 | NUR ---
REPORT RECEIVED ON PT. PT CURRENTLY SLEEPING IN POSITION, ON CR MONITOR, CALM AND HAS BEEN COOPERATIVE FOR AN HOUR, AND HAS HAD HER 4 POINT RESTRAINTS REMOVED. AIRWAY BREATHING AND CIRCULATION INTACT.
--- NOTE | 2020-07-28 02:05 | NUR ---
no change in status. pt remains on cr monitor, and sleeping in bed.
--- NOTE | 2020-07-28 03:09 | NUR ---
NO CHANGES IN PT STATUS. PT SLEEPING AND RESTING COMFORTABLY IN BED. AIRWAY INTACT, AND GOOD AERATION AND OXYGENATION. SIDERAILS UP X2 AND CALL LIGHT WITHIN REACH.
--- NOTE | 2020-07-28 03:58 | NUR ---
PT REMAINS ASLEEP AND DIFFICULT TO WAKE UP. REMAINS ON CR MONITOR, NO DISTRESS. AIRWAY INTACT, GOOD AERATION AND OXYGENATION. PT MEDS ORDERED BY MD, AND WILL WAIT UNTIL PT MORE AWAKE.
[2020-07-28 04:00] VITALS: BP 144/86
[2020-07-28] MEDS ORDERED: POTASSIUM CHLORIDE 20 MEQ TAB.ER.PRT PO ONE (04:00)
--- NOTE | 2020-07-28 04:10 | NUR ---
PT AWAKE, RESTING IN BED, AND PROVIDED SOME WARM BLANKETS WHEN SHE SAID SHE WOULD TAKE SOME. PT ON CR MONITOR, NO DISTRESS AND NO AGITATION AT THIS TIME.
[2020-07-28] MEDS ORDERED: POTASSIUM CHLORIDE 20 MEQ TAB.ER.PRT ONE (04:11)
--- NOTE | 2020-07-28 04:20 | NUR ---
TO BEDSIDE TO EVAL PT, AND TALK WITH HER. PT AWAKE, STILL DROWSY, BUT ANSWERING QUESTIONS APPROPRIATELY. WHEN ASKED HOW SHE GOT HERE, PT STATES, "BY 911". WHEN ASKED IF SHE KNOWS WHY SHE IS HERE, SHE STATED "BECAUSE I WAS FREAKING OUT" WHEN ASKED WHY SHE MAY HAVE BEEN FREAKING OUT PT STATES: "CAUSE I TOOK SOME ACID AND HAD A BAD TRIP". PT ADVISED THAT IF SHE CONTINUES TO IMPROVE WE CAN D/C SOON. PT AGREES AND STATES THAT WOULD BE GOOD. PT WILL REMAIN UNTIL MORE FULLY AWAKE AND SITTING UP IN GURNEY. SIDERAILS REMAIN UP X2 AND CALL LIGHT WITHIN REACH.
--- NOTE | 2020-07-28 05:12 | NUR ---
PT AWOKE, AND RN TALKED TO PT, AND SHE SAYS SHE FEELS SHE'S GOOD TO GO HOME AND REST AT HOME. MED AVAILABLE, AND PT ABLE TO CONVERSE WITH STAFF
--- NOTE | 2020-07-28 05:19 | NUR ---
PT WIDE AWAKE AND CONVERSING WITH STAFF. DISCHARGE PAPERWORK PROVIDED BY MD AND PT TO BE D/C AT THIS TIME. PT COMFORTABLE AND CALM AND COOPERATIVE. PT CALLING HER BF FOR A RIDE HOME. WILL WAIT UNTIL HE ARRIVES TO D/C PIV AND ASSIT PATIENT OUT.
== END 2020-07-28 07:15 | disposition home or self-care (01) ==
LOC: EDBD 22:37 → MERGE 22:37 → ED 07-28 02:26 → EDIP 07-28 02:27
PROVIDERS: ADMIT Student in an Organized Health Care Education/Training Program; ATTEND Student in an Organized Health Care Education/Training Program
DX: F16.951 Hallucinogen use, unspecified with hallucinogen-induced psychotic disorder with hallucinations (principal); G92 Toxic encephalopathy; E87.6 Hypokalemia; E03.9 Hypothyroidism, unspecified; R00.0 Tachycardia, unspecified; F13.10 Sedative, hypnotic or anxiolytic abuse, uncomplicated; Z63.8 Other specified problems related to primary support group; Z79.899 Other long term (current) drug therapy
CPT/HCPCS: 36415; 80053; 80299; 80320; 80329; 84439; 84443; 84703; 85025; 96361; 96372; 96374; 99284; G0378; J2060; J3486; J7030; G0480